=== PATIENT | female | born 1960 | race Caucasian/White ===

== ENCOUNTER 2017-10-05 23:07 | Emergency (ER) | payer OTHER ==
[2017-10-05 23:08] VITALS: BP 121/71; PULSE 103; RESP 16; TEMP 99.3; O2SAT 95
[2017-10-06] MEDS ORDERED: SODIUM CHLOR 0.9% 1000 ML INJ 1,000 ML IV ONE ×2 (01:45→03:15)
[2017-10-06] MEDS ORDERED: ONDANSETRON HCL 4 MG/2 ML VIAL IV ONE (01:45)
--- NOTE | 2017-10-06 01:46 | PD ---
HPI Chief Complaint: Cold / Flu Symptoms Time Seen by Provider: 01:40 Travel History International Travel<30 days: No Contact w/Intl Traveler<30days: No Traveled to known affect area: No History of Present Illness HPI The patient is a 57 year old female who presents to the [facility] emergency department with a history of body aches that began on [place]. She then developed a subjective fever associated with nausea, vomiting, and diarrhea. She has had n/v too many times to count. She has had numerous episodes of diarrhea. Her stool is yellow in color. She denies having any blood in her stool. She denies having any mucus in her stool. She was around a child with similar symptoms of vomiting and diarrhea recently on review of systems, she denies having any recent cough or congestion, neck pain, chest pain , shortness of breath, urinary symptoms, or neurologic symptoms. [facility] Past Medical History Narrative Medical The patient's past medical history is reportedly None. Medical History: Denies Significant Hx Diminished Hearing: No Tetanus Vaccination: Unknown Influenza Vaccination: No Past Surgical History Narrative Surgical The patient's past surgical history is significant for x1 and tonsillectomy. Surgical History: No Previous Surgery Section: Yes Social History Alcohol Use: No Tobacco Use: No Substance Use: No Allergies-Medications (Allergen,Severity, Reaction): Coded Allergies: Penicillins (Verified Allergy, Unknown, 10/05/17) ibuprofen (Verified Allergy, Unknown, 10/05/17) naproxen (Verified Allergy, Unknown, 10/05/17) Reported Meds & Prescriptions Reported Meds & Active Scripts Active No Active Prescriptions or Reported Medications Review of Systems Except as stated in HPI: all other systems reviewed are Neg General / Constitutional: Positive: Fever Eyes: No: Visual changes HENT: No: Headaches Cardiovascular: No: Chest Pain or Discomfort Respiratory: No: Shortness of Breath Gastrointestinal: Positive: Nausea, Vomiting, Diarrhea, Changes in Bowel Habits , No: Abdominal Pain Genitourinary: No: Dysuria Musculoskeletal: Positive: Myalgias, No: Pain Skin: No Rash Neurologic: No: Weakness Psychiatric: No: Depression Endocrine: No: Polydipsia Hematologic/Lymphatic: No: Easy Bruising Physical Exam Narrative General: The patient is a well-developed well-nourished female in no acute distress. Head and Neck exam: Head is normocephalic atraumatic. Eyes: EOMI, pupils are equal round and reactive to light. Nose: Midline septum with pink mucous membranes Mouth: Dentition unremarkable. Moist mucus membranes. Posterior oropharynx is not erythematous. No tonsillar hypertrophy. Uvula midline. Airway patent. Neck: No palpable lymphadenopathy. No nuchal rigidity. No thyromegaly. Negative Brudzinski, negative Kernig sign. Cardiovascular: Regular rate and rhythm without murmurs, gallops, or rubs. Lungs: Clear to auscultation bilaterally. No wheezes, rhonchi, or rales. Abdomen: Soft, without tenderness to palpation in all 4 quadrants of the abdomen. No guarding, rebound, or rigidity. Normal bowel sounds are audible. No tenderness on palpation of McBurney's point. Extremities: No clubbing, cyanosis, or edema. 2+ pulses in all 4 extremities. No calf tenderness on palpation. Back: No spinous process tenderness to palpation. Bilateral CVA tenderness as reported on palpation. Neurologic Exam: Grossly nonfocal. Skin Exam: No rash noted. Intact skin that is warm and dry. Data Data Last Documented VS Vital Signs Date Time Temp Pulse Resp B/P (MAP) Pulse Ox O2 Delivery O2 Flow Rate FiO2 10/06/17 01:56 99 Room Air 10/06/17 01:56 16 10/05/17 23:08 99.3 103 Orders Orders Electrocardiogram (10/06/17 01:41) Complete Blood Count With Diff (10/06/17 01:41) Comprehensive Metabolic Panel (10/06/17 01:41) Creatine Kinase (Cpk) (10/06/17 01:41) Ckmb (Isoenzyme) Profile (10/06/17 01:41) Troponin I (10/06/17 01:41) Prothrombin Time / Inr (Pt) (10/06/17 01:41) Act Partial Throm Time (Ptt) (10/06/17 01:41) Lipase (10/06/17 01:41) Urinalysis - C+S If Indicated (10/06/17 01:41) Magnesium (Mg) (10/06/17 01:41) Influenzae A/B Antigen (10/06/17 01:41) Chest, Single Ap (10/06/17 01:41) Iv Access Insert/Monitor (10/06/17 01:41) Ecg Monitoring (10/06/17 01:41) Oximetry (10/06/17 01:41) Ondansetron Inj (Zofran Inj) (10/06/17 01:45) Sodium Chlor 0.9% 1000 Ml Inj (Ns 1000 M (10/06/17 01:45) Ct Abd/Pel W/O Iv Contrast (10/06/17 03:12) Sodium Chlor 0.9% 1000 Ml Inj (Ns 1000 M (10/06/17 03:15) Prochlorperazine Inj (Compazine Inj) (10/06/17 03:15) Acetaminophen (Tylenol) (10/06/17 03:15) Oral Rehydration (10/06/17 03:12) Labs Laboratory Tests Test 10/06/17 02:00 White Blood Count 14.5 TH/MM3 Red Blood Count 5.55 MIL/MM3 Hemoglobin 15.6 GM/DL Hematocrit 45.0 % Mean Corpuscular Volume 81.1 FL Mean Corpuscular Hemoglobin 28.2 PG Mean Corpuscular Hemoglobin Concent 34.8 % Red Cell Distribution Width 14.3 % Platelet Count 315 TH/MM3 Mean Platelet Volume 7.8 FL Neutrophils (%) (Auto) 93.3 % Lymphocytes (%) (Auto) 2.1 % Monocytes (%) (Auto) 4.2 % Eosinophils (%) (Auto) 0.0 % Basophils (%) (Auto) 0.4 % Neutrophils # (Auto) 13.5 TH/MM3 Lymphocytes # (Auto) 0.3 TH/MM3 Monocytes # (Auto) 0.6 TH/MM3 Eosinophils # (Auto) 0.0 TH/MM3 Basophils # (Auto) 0.1 TH/MM3 CBC Comment DIFF FINAL Differential Comment Prothrombin Time 9.7 SEC Prothromb Time International Ratio 1.0 RATIO Activated Partial Thromboplast Time 24.8 SEC Urine Color YELLOW Urine Turbidity CLEAR Urine pH 7.0 Urine Specific [place] 1.029 Urine Protein 30 mg/dL Urine Glucose (UA) NEG mg/dL Urine Ketones NEG mg/dL Urine Occult Blood TRACE Urine Nitrite NEG Urine Bilirubin NEG Urine Urobilinogen LESS THAN 2.0 MG/DL Urine Leukocyte Esterase TRACE Urine RBC 12 /hpf Urine WBC 4 /hpf Urine Squamous Epithelial Cells 1 /hpf Urine Mucus FEW /lpf Microscopic Urinalysis Comment CULT NOT INDICATED Blood Urea Nitrogen 19 MG/DL Creatinine 0.82 MG/DL Random Glucose 147 MG/DL Total Protein 8.7 GM/DL Albumin 3.8 GM/DL Calcium Level 8.9 MG/DL Magnesium Level 1.9 MG/DL Alkaline Phosphatase 162 U/L Aspartate Amino Transf (AST/SGOT) 24 U/L Alanine Aminotransferase (ALT/SGPT) 30 U/L Total Bilirubin 0.5 MG/DL Sodium Level 140 MEQ/L Potassium Level 4.0 MEQ/L Chloride Level 103 MEQ/L Carbon Dioxide Level 29.6 MEQ/L Anion Gap 7 MEQ/L Estimat Glomerular Filtration Rate 71 ML/MIN Total Creatine Kinase 90 U/L Troponin I LESS THAN 0.02 NG/ML Lipase 153 U/L [facility] Medical Decision Making Medical Screen Exam Complete: Yes Emergency Medical Condition: Yes Medical Record Reviewed: Yes Interpretation(s) Last Impressions Abdomen/Pelvis CT 10/06/17311 Signed Impressions: Service Date/Time: Friday, October 06, 2017 03:41 - CONCLUSION: 1. Nonobstructive bowel gas pattern. 2. Apparent left-sided parapelvic cyst. 3. Unremarkable gallbladder. Oneal Burk MD Chest X-Ray 10/06/17 0141 Signed Impressions: Service Date/Time: Friday, October 06, 2017 02:08 - CONCLUSION: No acute disease. There is no evidence of pneumonia. Oneal Burk MD Differential Diagnosis Viral versus bacterial gastroenteritis, versus pyelonephritis, versus dehydration, versus electrolyte derangement Narrative Course During the course of the patients emergency department visit, the patients history, examination, and differential diagnosis were reviewed with the patient. The patient was placed on a pediatric social worker with oximetry and frequent blood pressure monitoring. The patient had IV access obtained and blood work sent for analysis. The patient was initially provided normal saline 1 L IV fluid bolus which was repeated 1, Zofran 4 mg IV, Tylenol 650 by mouth 1. The patient reported continued nausea and was given Compazine 5 mg IV. The patient was started on a by mouth challenge. The patients laboratory studies were reviewed and remarkable for a white count of 14.5, hemoglobin 15.6, platelets 3:15 with 93.3 neutrophils, CMP is remarkable for a BUN of 19, glucose 147, alkaline phosphatase 162, cardiac enzymes within normal limits, lipase 153, PT PTT within normal limits. Urinalysis shows trace ketones, 30 protein, leukocyte esterase trace, RBCs 12, WBCs 4. Radiology studies were reviewed and remarkable for a chest x-ray showed no acute cardiopulmonary disease. CT scan of the abdomen and pelvis showed no acute abnormality, a left-sided peripelvic cyst is noted. The patient will be given a copy of her CT scan findings for follow-up with her primary care physician. The patient will be discharged home with a prescription for Zofran as she has tolerated her by mouth challenge well. She is instructed to push fluids and get plenty of rest. The patient is resting comfortably and feels better, is alert and in no distress. The patients results and examination findings were discussed with the patient. The repeat examination is unremarkable and benign. The history, exam, diagnostic testing, and current condition do not suggest any significant pathology to warrant further testing, continued ED treatment, admission, or surgical evaluation at this point. The vital signs have been stable. The patient does not have uncontrollable pain, intractable vomiting, or other significant symptoms. The patient's condition is stable and appropriate for discharge. The patient will pursue further outpatient evaluation with a primary care physician or other designated or consulting physician as indicated in the discharge instructions. The patient expressed understanding and was agreeable with this plan. Diagnosis Primary Impression: Nausea, vomiting, and diarrhea Referrals: Primary Care Physician 3 days Patient Instructions: Acute Diarrhea (ED), Acute Nausea and Vomiting (ED), General Instructions Departure Forms: Tests/Procedures, Work Release Enter return to work date: Oct 09, 2017 Med/Other Pt SpecificInfo: Prescription(s) given Scripts Ondansetron Odt (Zofran Odt) 4 Mg Tab 4 MG SL Q6HR Y for Nausea/Vomiting, #7 TAB 0 Refills Prov: Sravani Rivera MD 10/06/17 Disposition: DISCHARGE HOME Condition: Stable Sravani Rivera MD Oct 06, 2017 01:46
[2017-10-06 01:56] VITALS: RESP 16; O2SAT 98
[2017-10-06 02:16] LABS: AUTOMATED NEUTROPHIL # 13.5 TH/MM3 (1.8-7.7); BASOPHIL # 0.1 TH/MM3 (0-0.2); BASOPHIL % 0.4 % (0.0-2.0); HEMO FLAGS DIFF FINAL; LYMPH % 2.1 % (9.0-44.0); LYMPHOCYTE # 0.3 TH/MM3 (1.0-4.8); MEAN CELL VOLUME 81.1 FL (80.0-100.0); MEAN CORPUSCULAR HEMOGLOBIN 28.2 PG (27.0-34.0); MEAN CORPUSCULAR HGB CONC 34.8 % (32.0-36.0); MONO % 4.2 % (0.0-8.0); NEUT % 93.3 % (16.0-70.0); PLATELET COUNT 315 TH/MM3 (150-450); RED BLOOD COUNT 5.55 MIL/MM3 (4.00-5.30); RED CELL DISTRIBUTION WIDTH 14.3 % (11.6-17.2); WHITE BLOOD COUNT 14.5 TH/MM3 (4.0-11.0)
[2017-10-06 02:30] LABS: ALT (GPT) 30 U/L (10-53); ANION GAP 7 MEQ/L (5-15); AST (GOT) 24 U/L (15-37); BICARBONATE 29.6 MEQ/L (21.0-32.0); BLOOD UREA NITROGEN 19 MG/DL (7-18); CHLORIDE 103 MEQ/L (98-107); GLOMERULAR FILTRATION RATE 71 ML/MIN (>89); MAGNESIUM 1.9 MG/DL (1.5-2.5); SODIUM (NA) 140 MEQ/L (136-145)
[2017-10-06 02:34] LABS: ALKALINE PHOSPHATASE 162 U/L (45-117); TOTAL BILIRUBIN ADULT 0.5 MG/DL (0.2-1.0)
--- NOTE | 2017-10-06 02:36 | RADRPT ---
EXAM DATE/TIME: 10/06/2017 02:08 [facility] COMPARISON: No previous studies available for comparison. INDICATIONS : Cough. MEDICAL HISTORY : None. SURGICAL HISTORY : None. ENCOUNTER: Initial ACUITY: 1 day PAIN SCORE: 0/10 LOCATION: Bilateral chest FINDINGS: A single view of the chest demonstrates the lungs to be symmetrically aerated without evidence of mas s, infiltrate or effusion. The cardiomediastinal contours are unremarkable. Osseous structures are intact. CONCLUSION: No acute disease. There is no evidence of pneumonia. Oneal Burk MD on October 06, 2017 at 2:35 Board Certified Radiologist. This report was verified electronically.
[2017-10-06 02:38] LABS: APTT (PATIENT) 24.8 SEC (24.3-30.1); PROTHROMBIN TIME - PATIENT 9.7 SEC (9.8-11.6)
[2017-10-06 02:43] LABS: CREATINE KINASE 90 U/L (26-192)
[2017-10-06 02:45] LABS: BLOOD, URINE TRACE (NEG); COMMENT (UR) CULT NOT INDICATED; CULTURE IF INDICATED CULT NOT INDICATED; GLUCOSE,URINE NEG (NEG); KETONE, URINE NEG (NEG); MUCUS URINE FEW /lpf (OCC); NITRITE,URINE NEG (NEG); SQUAMOUS EPITHELIAL CELL URINE 1 /hpf (0-5); URINE COLOR YELLOW (YELLW/STRAW)
[2017-10-06] MEDS ORDERED: ACETAMINOPHEN 325 MG TAB PO ONE (03:15)
[2017-10-06] MEDS ORDERED: PROCHLORPERAZINE INJ 10 MG/2 ML VIAL IV PUSH ONE (03:15)
--- NOTE | 2017-10-06 04:08 | RADRPT ---
EXAM DATE/TIME: 10/06/2017 03:41 [facility] COMPARISON: No previous studies available for comparison. INDICATIONS : Abdomen pain with nausea and vomiting past 2 days. ORAL CONTRAST: No oral contrast ingested. RADIATION DOSE: 16.22 CTDIvol (mGy) MEDICAL HISTORY : None SURGICAL HISTORY : section. ENCOUNTER: Initial ACUITY: 2 days PAIN SCALE: LOCATION: Bilateral abdomen TECHNIQUE: Volumetric scanning of the abdomen and pelvis was performed. Using automated exposure control and ad justment of the mA and/or kV according to patient size, radiation dose was kept as low as reasonably achievable to obtain optimal diagnostic quality images. DICOM format image data is available electro nically for review and comparison. FINDINGS: LOWER LUNGS: The visualized lower lungs are clear. LIVER: Homogeneous density without lesion. There is no dilation of the biliary tree. No calcified gallston es. SPLEEN: Normal size without lesion. PANCREAS: Within normal limits. KIDNEYS: Normal in size and shape. There is no mass, stone, or hydronephrosis. There is no apparent parapelvi c cyst on the left. ADRENAL GLANDS: Within normal limits. VASCULAR: There is no aortic aneurysm. BOWEL/MESENTERY: No oral contrast given limits sensitivity. The stomach, small bowel, and colon demonstrate no acute a bnormality. There is no free intraperitoneal air or fluid. ABDOMINAL WALL: Within normal limits. RETROPERITONEUM: There is no lymphadenopathy. BLADDER: No wall thickening or mass. REPRODUCTIVE: Within normal limits. INGUINAL: There is no lymphadenopathy or hernia. MUSCULOSKELETAL: Within normal limits for patient age. CONCLUSION: 1. Nonobstructive bowel gas pattern. 2. Apparent left-sided parapelvic cyst. 3. Unremarkable gallbladder. Oneal Burk MD on October 06, 2017 at 4:03 Board Certified Radiologist. This report was verified electronically.
[2017-10-06 04:55] VITALS: BP 141/72; PULSE 106; RESP 16; TEMP 98.4
[2017-10-06] MEDS ORDERED: ZOFR4TAB3 SL (05:01)
--- NOTE | 2017-10-06 14:23 | EKG ---
Date Performed: 10/06/2017 Time Performed: 01:59:15 PTAGE: 57 years EKG: Sinus rhythm NONSPECIFIC T-WAVE ABNORMALITY ABNORMAL ECG NO PREVIOUS TRACING DOCTOR: Odette Diaz Interpretating Date/Time 10/06/2017 14:22:10
== END 2017-10-06 05:10 | disposition home or self-care (01) ==
LOC: NEPC 23:07
DX: R11.2 Nausea with vomiting, unspecified (principal); R19.7 Diarrhea, unspecified; M79.1 Myalgia; R94.31 Abnormal electrocardiogram [ECG] [EKG]; Z88.0 Allergy status to penicillin; Z88.6 Allergy status to analgesic agent
CPT/HCPCS: 71010; 74176; 80053; 81001; 82550; 83690; 83735; 84484; 85025; 85610; 85730; 87804; 93005; 96361; 96374; 96375; 99285; J0780; J2405; J7030